=== PATIENT | female | born 1980 | race Asian ===

== ENCOUNTER 2024-07-11 20:57 | Emergency (ER) | payer MEDICAID ==
[~2024-07-11] VITALS: Ht 154.9 cm; Wt 48.1 kg
[2024-07-11 21:15] VITALS: BP_SYST 117; PULSE 74; RESP 20; TEMP 98; O2SAT 98
[2024-07-11] MEDS ORDERED: AUG875 PO (23:05)
[2024-07-11 23:10] VITALS: BP_SYST 120; PULSE 75; RESP 20; TEMP 98.2; O2SAT 98
== END 2024-07-11 23:10 | disposition home or self-care (01) ==
LOC: SED 20:57
DX: H65.192 Other acute nonsuppurative otitis media, left ear (principal); Z79.2 Long term (current) use of antibiotics
CPT/HCPCS: 99283

== ENCOUNTER 2024-07-14 16:25 | Emergency (ER) | payer MEDICAID ==
[~2024-07-14] VITALS: Ht 154.9 cm; Wt 48.1 kg
[~2024-07-14 16:25] MED LIST: AUG875 PO
[2024-07-14 17:26] VITALS: BP_SYST 108; PULSE 80; RESP 18; TEMP 98.2; O2SAT 98
[2024-07-14] MEDS ORDERED: AZIT500T PO (20:34)
[2024-07-14 20:35] VITALS: BP_SYST 108; PULSE 80; RESP 18; TEMP 98.2; O2SAT 98
== END 2024-07-14 20:38 | disposition home or self-care (01) ==
LOC: SED 16:25
DX: H66.92 Otitis media, unspecified, left ear (principal); R19.7 Diarrhea, unspecified; R42 Dizziness and giddiness
CPT/HCPCS: 99283